=== PATIENT | female | born 1965 | race Caucasian/White ===

== ENCOUNTER → 2019-09-18 14:13 | Outpatient (BNVA) | payer MEDICARE, SELFPAY | PROVIDERS: Family Provider Family Medicine; PCP Family Medicine; Visit Provider Nurse Practitioner | DX: R05 Cough (principal) | CPT/HCPCS: 71046; 87400 ==

== ENCOUNTER 2019-09-30 22:03 | Emergency (ER) | payer MEDICARE, BC, SELFPAY ==
[2019-09-30 22:09] VITALS: BP 175/100; PULSE 98; RESP 18; TEMP 36.7; O2SAT 98; BMI 22.6
--- NOTE | 2019-09-30 22:24 | W.ED.FEMALGU ---
HPI - Female Genitourinary General: Chief complaint: Urogenital-Female Stated complaint: ordonez, n/v, med refill, flank pain Time Seen by Provider: 09/30/19 22:18 History of Present Illness: HPI Narrative: Patient complained about migraine is gone for couple days and then SI joint pain on the right side not really flank pain denies any chest pain just feels stressed denies any shortness of breath heaviness in her chest or pain rating down her arms or neck is any dysuria or blood in her urine Associated symptoms: Reports headache(s) and nausea; Deny abdominal pain Review of Systems Const: Denies: fever(s), chills or body aches Eyes: Denies: change in vision or blurry vision ENMT: Denies: throat pain or nasal congestion Card: Denies: chest pain or dyspnea on exertion Resp: Denies: dyspnea, productive cough or non-productive cough GI: Reports: nausea; Denies: abdominal pain or vomiting Musc: Reports: back pain (Right SI joint); Denies: extremity pain Skin/Breast: Denies: rash Neuro: Reports: headache(s) and other (Complain about photo and phono phobia) Psych: Denies: anxiety or depression Subhash/Lymph: Denies: easy bruising PFSH ED PFSH: Social History (Updated 09/18/19 @ 13:38 by Virginia Cartagena LPN) Smoking and tobacco status: current every day smoker Physical Exam Const: COMMON NORMALS: no acute distress, average body habitus and patient oriented x3 HENMT: COMMON NORMALS: normocephalic HEAD & SCALP: normal to inspection and normocephalic FACE & SINUS: normal facial exam Eye: COMMON NORMALS: conjunctivae normal GENERAL EYE: appearance normal, both eyes and all related structures CONJUNCTIVA: Yes conjunctivae normal Neck/C-Spine: COMMON NORMALS: no JVD Chest: COMMONS NORMALS: normal inspection of the chest Resp: COMMON NORMALS: normal respiratory effort and clear to auscultation bilaterally AUSCULTATION: clear to auscultation bilaterally Cardio: COMMON NORMALS: no JVD, regular rate and regular rhythm RATE: regular rate RHYTHM: regular rhythm GI: COMMON NORMALS: Normal to inspection, nondistended, normoactive bowel sounds present Back/Pelvis: COMMON NORMALS: straight leg raise negative bilaterally (SI joint pain right side) Extremity: COMMON NORMALS: normal to inspection and full ROM Neuro: COMMON NORMALS: patient oriented x3, CN's II-XII intact bilaterally, moves all extremities and no focal motor deficits Course Vital Signs: Vital signs: Vital Signs Temperature 98.1 F 09/30/19 22:09 Pulse Rate 98 09/30/19 22:09 Respiratory Rate 18 09/30/19 22:09 Blood Pressure 175/100 09/30/19 22:09 Pulse Oximetry 98 09/30/19 22:09 Discharge Plan Discharge Prescriptions: No Action No Known Home Medications RF: 0 Coding Level of Care Code ED Junior Business Analyst for Martha Stout
--- NOTE | 2019-09-30 22:45 | PC.NURSE ---
patient states she is having a migraine with right flank pain and nausea. patient states this started today
[2019-09-30] MEDS: ondansetron 2 mg/ML SDV 2 mL 4 MG IVP (22:54)
[2019-09-30] MEDS: diphenhydrAMINE 50 mg/mL SDV 1mL 25 MG IVP (22:54)
[2019-09-30] MEDS: ketorolac 30 mg/mL INJ IVP (22:55)
[2019-09-30] MEDS: sodium chloride 0.9% 1,000 ML 999 ML IV (22:58)
[2019-09-30 22:59] VITALS: BP 158/96; PULSE 80; RESP 14; O2SAT 97
[2019-09-30 23:24] VITALS: BP 160/101; O2SAT 96
[2019-09-30 23:38] VITALS: BP 165/99; PULSE 69; RESP 16; O2SAT 97
[2019-09-30] MEDS: dexamethasone 4 mg/mL INJ 8 MG IVP (23:43)
[2019-10-01 00:24] VITALS: BP 125/86; PULSE 67; RESP 16; O2SAT 98
== END 2019-10-01 00:25 | disposition home or self-care (01) ==
PROVIDERS: Emergency Provider Nurse Practitioner Family; PCP Family Medicine
DX: R51 Headache (principal); R11.2 Nausea with vomiting, unspecified; R10.9 Unspecified abdominal pain; F17.210 Nicotine dependence, cigarettes, uncomplicated
CPT/HCPCS: 12345; 96361; 96374; 96375; 99282; 99283; J1100; J1200; J1885; J2405; J7030

== ENCOUNTER 2019-12-03 18:17 | Outpatient (CLI) | payer BC, SELFPAY ==
--- NOTE | 2019-12-03 18:25 | XRR_ITS ---
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 COMPARISON: CR XR chest 2V* [id number] 09/18/2019 2:26 PM FINDINGS: Lungs: Hyperinflation of the lungs. No consolidation. Pleural space: Unremarkable. No pleural effusion. No pneumothorax. Heart/Mediastinum: Postsurgical changes in the upper abdomen. Postsurgical changes noted in the anterior mediastinum, similar to prior exam, in keeping with provided history. Bones/joints: Unremarkable. XR/XR chest 2V* [id number] IMPRESSION: No consolidation.
== END 2019-12-03 18:18 | disposition home or self-care (01) ==
PROVIDERS: PCP Family Medicine; Visit Provider Nurse Practitioner Family
DX: R50.9 Fever, unspecified (principal)
CPT/HCPCS: 71046

== ENCOUNTER → 2019-12-12 14:51 | Outpatient (BNVA) | payer BC, SELFPAY | PROVIDERS: PCP Family Medicine; Visit Provider Psychiatry & Neurology Psychiatry | DX: F41.1 Generalized anxiety disorder (principal); F33.1 Major depressive disorder, recurrent, moderate; F43.29 Adjustment disorder with other symptoms | CPT/HCPCS: 99204 ==

== ENCOUNTER → 2020-01-24 07:44 | Outpatient (BNVA) | payer BC, SELFPAY | PROVIDERS: PCP Family Medicine; Visit Provider Psychiatry & Neurology Psychiatry | DX: F43.29 Adjustment disorder with other symptoms (principal); F33.1 Major depressive disorder, recurrent, moderate; F41.1 Generalized anxiety disorder | CPT/HCPCS: 99213 ==

== ENCOUNTER 2020-04-06 23:30 | Emergency (ER) | payer MEDICARE, SELFPAY ==
[2020-04-06 23:36] VITALS: BP 121/82; PULSE 107; RESP 18; TEMP 35.9; O2SAT 96; BMI 20.1
--- NOTE | 2020-04-07 00:09 | XR_ITS ---
WS: [id number] XR KUB portable [id number] REASON FOR EXAM: francis drain FINDINGS: Multiple surgical clips in the upper right and left abdomen. Moderate distention of colon in the midline. No free air or retroperitoneal air. Drainage catheter seen overlying the right iliac wing. No previous imaging with drainage catheter in place. XR/XR KUB portable [id number] IMPRESSION: Drainage catheter in the right abdomen as above.
[2020-04-07 02:15] VITALS: RESP 17
[2020-04-07] MEDS: fentaNYL 50 mcg/mL INJ 2mL 100 MCG IVP (02:15)
[2020-04-07] MEDS: ondansetron 2 mg/ML SDV 2 mL 4 MG IVP (02:15)
--- NOTE | 2020-04-07 02:35 | W.ED.GENADLT ---
HPI - General Adult General: Chief complaint: General Medical Stated complaint: francis tube won't drain Time Seen by Provider: 04/06/20 23:42 History of Present Illness: HPI narrative: 54-year-old female with a history of diverticulitis surgery and FRANCIS tube placement a couple of weeks ago in [facility] [place]. She notes that the FRANCIS tube has quit draining for the past 36 hours or so. She notes an increase in pain following that. She has flushed it, but is unable to get much return at all. She has not had a fever. She is not been vomiting. She is asking for the drain to be pulled. Onset (ago): hour(s) (36) Location: abdomen Radiation: non-radiation Severity: moderate Pain Consistency: constant Relieving factors: none Exacerbating factors: none Associated symptoms: Reports nausea; Deny chest pain, confusion, cough, dyspnea, fevers/chills or vomiting Review of Systems Const: Denies: fever(s) or chills Card: Denies: chest pain Resp: Denies: dyspnea GI: Reports: nausea; Denies: vomiting Neuro: Denies: confusion PFSH ED PFSH: Social History (Updated 09/18/19 @ 13:38 by Virginia Cartagena LPN) Smoking and tobacco status: current every day smoker Current gender identity: Female Physical Exam Const: GENERAL APPEARANCE: well developed ORIENTATION/CONSCIOUSNESS: Yes oriented to person, Yes oriented to place and Yes oriented to time HENMT: COMMON NORMALS: normocephalic, external ears normal and Normal external nose present HEAD & SCALP: normocephalic FACE & SINUS: normal facial exam NOSE: Normal external nose present and No nasal discharge present EXTERNAL EAR: Yes external ears normal Eye: COMMON NORMALS: Equal, round and reactive pupils present, EOMs intact bilaterally and conjunctivae normal EYELID: eyelids normal CONJUNCTIVA: Yes conjunctivae normal PUPIL: Yes Equal, round and reactive pupils present Neck/C-Spine: GENERAL: No tracheal deviation Chest: COMMONS NORMALS: normal inspection of the chest CHEST: No tenderness Resp: COMMON NORMALS: clear to auscultation bilaterally EFFORT & INSPECTION: No tachypneic, No respiratory distress, No retractions, No uses accessory muscles and No tracheal deviation AUSCULTATION: clear to auscultation bilaterally, no rhonchi, no wheezes and lung sounds not diminished Cardio: COMMON NORMALS: regular rate and regular rhythm RATE: regular rate RHYTHM: regular rhythm HEART SOUNDS: no murmurs PERIPHERAL PULSES: radial pulses present GI: INSPECTION: No abdominal distension AUSCULTATION: No Hyperactive bowel sounds present and No Hypoactive bowel sounds present PALPATION: Yes Tenderness to palpation present (GI) Details: RLQ (around drain exit. NO swelling, drainage, redness), No Guarding due to palpation present (GI) and No Rigid due to palpation PERCUSSION: no dullness to percussion and no tympanic to percussion Neuro: SENSORIUM/ORIENTATION: Yes oriented to person, Yes oriented to place and Yes oriented to time Psych: COMMON NORMALS: mental status grossly normal Skin: COMMON NORMALS: no rashes or lesions noted GENERAL SKIN EXAM: no rashes or lesions noted Course Consultations: Consultation #Lukasz: ozzy Time: 02:01 Vital Signs: Vital signs: Vital Signs Temperature 96.7 F L 04/06/20 23:36 Pulse Rate 107 H 04/06/20 23:36 Respiratory Rate 17 04/07/20 02:15 Blood Pressure 121/82 04/06/20 23:36 Pulse Oximetry 96 04/06/20 23:36 MDM - General Adult MDM Narrative: Medical decision making narrative: 54-year-old female with a decreasing FRANCIS tube drainage, with increasing pain. She sounds no sign of toxicity. After KUB was reviewed, attempted pulling the drain was made. Suture was cut using normal suture removal scissors. Back pressure was placed, but with a significant increase in pain, and no bulging of the drain. One of our nurses tried as well, with the same result. We spoke with the surgeon supervisor electronic testing, who recommended trying to flush the drain with sterile saline, and then pull, which was attempted without success. Surgery states they will see the patient later today as an outpatient for further evaluation and management. Discharge Plan Discharge Patient Disposition: Home Clinical Impression: Abdominal pain Qualifiers: Abdominal location: right lower quadrant Qualified Code(s): R10.31 - Right lower quadrant pain Condition: Stable Prescriptions: [place] 5-325 mg tablet 1 tab PO Q6H Qty: 7 RF: 0 ondansetron 4 mg film 4 mg PO DAILY PRN (Reason: nausea and vomiting) Qty: 10 RF: 0 No Action diphenhydramine HCl [Benadryl] 25 mg capsule 75 mg PO .QHS PRNRF: 0 melatonin 10 mg capsule 30 mg PO .QHS RF: 0 Excedrin Tension Headache 500-65 mg tablet 2 tab PO DAILY PRNRF: 0 ibuprofen 200 mg tablet 800 mg PO Q12H PRN (Reason: fever or pain) RF: 0 naproxen sodium 220 mg tablet 440 mg PO DAILY PRNRF: 0 omeprazole 20 mg capsule,delayed release(DR/EC) 40 mg PO BID RF: 0 papaya enzymes PO DAILY PRNRF: 0 promethazine 25 mg tablet 25 mg PO TID PRN (Reason: nausea and vomiting) Qty: 15 RF: 0 albuterol sulfate [ProAir HFA] 90 mcg/actuation HFA aerosol inhaler 2 puff INHALATION Q6H PRNRF: 0 sertraline [Zoloft] 100 mg tablet 100 mg PO DAILY Qty: 30 RF: 2 trazodone 100 mg tablet 200 mg PO .HS Qty: 60 RF: 2 Discharge Orders: Discharge ED (Routine); Ordered 04/07/20 Ordered By: Herberth Alamo Referrals: Inder Hazel MD [Physician] - (follow up later today in clinic. ) Virginia Proctor DO [Primary Care Provider] - Discharge Activity: Limit activity as instructed Patient Instructions: Abdominal Pain (ED) Activity Restrictions/Additional Instructions: Call the surgery clinic just after 8 AM this morning. Let them know you were seen here, and that we spoke to Dr. Hazel. He would like to see you today regarding difficulty with your FRANCIS drain. Coding Level of Care Code ED Perianesthesia Manager for [employer] Fwd Exam Comprehensive
--- NOTE | 2020-04-07 02:35 | PC.NURSE ---
attempted to remove LB drain twice now; once with Dr. Alamo attempting as well. there is great resistance to removing the drain from the inside; the entry point of the drain is clean, with reddened edges, but overall looks good; single suture was removed without complications. Dr. Alamo spoke with oncall surgeon for guidance, recommendation of flushing the tube in an attempt to dislodge; attempt was made, again with no success. Dr. Alamo made aware.
[2020-04-07 02:45] VITALS: BP 107/70; PULSE 73; RESP 17; O2SAT 100
[2020-04-07] MEDS: HYDROcodone-acetaminophen 5-325 mg Tablet 2 TAB PO (02:58)
[2020-04-07 03:00] VITALS: BP 107/70; PULSE 70; RESP 16; O2SAT 97
== END 2020-04-07 03:01 | disposition home or self-care (01) ==
PROVIDERS: Emergency Provider Emergency Medicine; PCP Family Medicine
DX: R10.31 Right lower quadrant pain (principal); F17.210 Nicotine dependence, cigarettes, uncomplicated
CPT/HCPCS: 12345; 74018; 96374; 96375; 99282; 99283; J2405; J3010

== ENCOUNTER → 2020-10-13 09:22 | Outpatient (BNVA) | payer MEDICARE, SELFPAY | PROVIDERS: PCP Family Medicine; Visit Provider Family Medicine | DX: Z13.6 Encounter for screening for cardiovascular disorders (principal); E55.9 Vitamin D deficiency, unspecified; J43.1 Panlobular emphysema; K21.9 Gastro-esophageal reflux disease without esophagitis; Z86.39 Personal history of other endocrine, nutritional and metabolic disease; F17.219 Nicotine dependence, cigarettes, with unspecified nicotine-induced disorders | CPT/HCPCS: 80053; 80061; 82306; 82728; 83540; 83550; 85025 ==

== ENCOUNTER → 2020-10-23 11:56 | Day surgery (SDC) | payer MEDICARE, SELFPAY ==
[2020-10-23] MEDS: ferric carboxy (IVPB) 750 MG in sodium chloride 0.9% (100 ml) 100 ML 345 MG IV (12:23)
[2020-10-23 12:31] VITALS: BP 162/83; PULSE 79; RESP 18; TEMP 36.5; O2SAT 100
== END ==
PROVIDERS: PCP Family Medicine; Visit Provider Family Medicine
DX: D50.8 Other iron deficiency anemias (principal)
CPT/HCPCS: 96365; J1439

== ENCOUNTER → 2020-10-30 11:42 | Day surgery (SDC) | payer MEDICARE, SELFPAY ==
[2020-10-30 12:16] VITALS: BP 121/73; PULSE 68; RESP 18; TEMP 36.4; O2SAT 96
[2020-10-30] MEDS: ferric carboxy (IVPB) 750 MG in sodium chloride 0.9% (100 ml) 100 ML 345 MG IV (12:30)
== END ==
PROVIDERS: PCP Family Medicine; Visit Provider Family Medicine
DX: D50.8 Other iron deficiency anemias (principal)
CPT/HCPCS: 96365; J1439

== ENCOUNTER → 2020-11-10 10:54 | Outpatient (BNVA) | payer MEDICARE, SELFPAY | PROVIDERS: PCP Family Medicine; Visit Provider Family Medicine | DX: D50.9 Iron deficiency anemia, unspecified (principal); R63.4 Abnormal weight loss; K21.9 Gastro-esophageal reflux disease without esophagitis | CPT/HCPCS: 83550; 85025 ==

== ENCOUNTER 2020-11-18 11:50 | Outpatient (CLI) | payer MEDICARE, SELFPAY ==
--- NOTE | 2020-11-18 11:58 | XR_ITS ---
WS: [id number] XR chest 2V* [id number] REASON FOR EXAM: weight loss FINDINGS: There is lucency and multiple air-fluid levels projected within the anterior mediastinum in both the AP and lateral views of the chest. Bowel wall markings are identified in the air collections. This ap pears to be large bowel, less likely small bowel. Thoracic aorta and heart are within normal limits. No active pulmonary parenchymal or pleural disease is noted. The bony thorax is intact. 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 There appears to be a considerable amount of bowel within the anterior mediastinum. This abnormality was present on a previous examination of 12/03/2019 with a less er amount of bowel. Finding was not reported. CT scan of the chest with intravenous contrast would be appropriate further ayaz luation. Oral contrast was not be needed.
== END 2020-11-18 11:51 | disposition home or self-care (01) ==
LOC: RAD 11:55
PROVIDERS: PCP Family Medicine; Visit Provider Family Medicine
DX: R63.4 Abnormal weight loss (principal)
CPT/HCPCS: 71046

== ENCOUNTER 2020-11-26 11:35 | Outpatient (CLI) | payer MEDICARE, SELFPAY ==
--- NOTE | 2020-11-26 12:08 | CT_ITS ---
WS: [id number] CT CHEST, ABDOMEN, AND PELVIS TECHNIQUE: Contrast-enhanced CT of the chest, abdomen, and pelvis with coronal and sagittal reformatt ed images. CLINICAL INFORMATION: abnormal chest x ray COMPARISON: 2 26,018 DLP: 1291.[address] scans at [facility] use at least one of these dose optimization techniques: automat ed exposure control; mA and/or kV adjustment per patient size (includes targeted exams where dose is matched to clinical indication); or iterative reconstruction. CT CHEST: Prior postoperative changes esophagectomy with colonic interposition. Moderate chronic emphysematous changes. No acute pulmonary infiltrates. No consolidation or pleural fluid. Calcified granuloma left lower lobe with surrounding parenchymal fibrosis. Adjacent parenchymal opacities improved compared to 2018. No other suspicious pulmonary parenchymal abnormalities. Subsegmental atelectasis in the lingu la and right middle lobe. No mediastinal or hilar lymphadenopathy. Normal caliber thoracic aorta. Proximal main pulmonary arter ies are normal. No axillary lymphadenopathy. Normal thoracic spine. CT ABDOMEN AND PELVIS: Diffuse fatty infiltration of the liver. Cholecystectomy clips. Normal portal vein and splenic vein. Splenic granulomas. Adrenal glands are normal. Normal renal parenchymal enhanc ement. No hydronephrosis. Malrotation right kidney. Small bilateral renal cysts. Fibroid uterus. No evidence of high-grade small or large bowel obstruction. Mild constipation in the hepatic flexure and proximal transverse colon. Normal caliber abdominal aorta. Pelvic varicosities. Prior gastric bypass. Tubal ligation. Stable Bartholin's cyst measuring 2.[address]/CT chest abd pel w con* IMPRESSION: 1. Esophagectomy with colonic interposition. 2. No suspicious pulmonary parenchymal opacities. 3. No mediastinal or hilar lymphadenopathy. 4. Hepatomegaly with diffuse fatty infiltration. This is new since 2018 5. Prior cholecystectomy and gastric bypass. 6. Fibroid uterus. 7. Mild constipation right hepatic flexure and proximal transverse colon.
[2020-11-26] MEDS: iohexol 300 mg/mL 50 mL Btl PO (12:11)
[2020-11-26] MEDS: iohexol 300 mg/mL 100 mL Btl IV (13:47)
== END 2020-11-26 11:36 | disposition home or self-care (01) ==
PROVIDERS: PCP Family Medicine; Visit Provider Family Medicine
DX: K46.9 Unspecified abdominal hernia without obstruction or gangrene (principal); R16.0 Hepatomegaly, not elsewhere classified; K76.0 Fatty (change of) liver, not elsewhere classified; Z90.49 Acquired absence of other specified parts of digestive tract; D25.9 Leiomyoma of uterus, unspecified; K59.00 Constipation, unspecified
CPT/HCPCS: 71260; 74177; Q9967

== ENCOUNTER → 2020-12-15 08:57 | Outpatient (BNVA) | payer MEDICARE, SELFPAY | PROVIDERS: PCP Family Medicine; Visit Provider Surgery | DX: Z20.822 Contact with and (suspected) exposure to COVID-19 (principal) | CPT/HCPCS: 87635 ==

== ENCOUNTER 2020-12-18 08:39 | Day surgery (SDC) | payer BC, MEDICARE, SELFPAY ==
[2020-12-15 16:00] VITALS: BMI 19.3
--- NOTE | 2020-12-18 10:10 | ANES.PREANE2 ---
Pre-Anesthetic Assessment Pre-Anesthetic Assessment: Height/Weight: Height 1.68 m Weight 54.431 kg Preop Diagnosis: panendoscopy Proposed Procedure: Operation Date: 12/18/20 10:00 Proposed Procedures s EGD [id number] 33226 Z12.11 K21.9(Not Applicable) - Inder Hazel MD p Colonoscopy(Not Applicable) - Inder Hazel MD Was Beta Emily taken within 24 hours: N/A Was Clonidine taken within 24 hours: N/A Social: Social History: Tobacco and No alcohol Exam: Pre-Anes Outpt Exam: alert, oriented x 3 and regular rate & rhythm Airway: Submandibular: WNL Cervical ROM: WNL MP: 2 Dentition: False Pulmonary: Pulmonary: COPD CV/HEM: CV/HEM: Anemia GI: GI: GERD Comments: Esophageal reconstruction Neuropsych: Neuropsych: Anxiety and Depression Comments: Chronic pain Anesthetic Plan: ASA status: 3 Anesthesia: Choice Risk of > 500 ml blood loss (7ml/kg in children): No PFSH Anesthesia PFSH: Medical History Asthma COPD (chronic obstructive pulmonary disease) S/P extracorporeal shock wave therapy kidney stones Surgical History H/O section H/O esophageal hernia repair H/O gastric bypass H/O jejunostomy History of knee surgery left arthroscopic Hx of cholecystectomy Hx of tubal ligation Family History Other Cancer Diabetes Denies family history of Anesthesia complication Bleeding disorder Social History Smoking and tobacco status: current every day smoker cigarettes Packs smoked per day: 0.75 Alcohol intake: current Alcohol intake frequency: holidays/special occasions only Lives independently: Yes Marital status: Single Current occupational status: employed History of recent travel: No Current gender identity: Female Data Anesthesia Cardiac Studies: No Data to Display
[2020-12-18 11:00] VITALS: BP 120/74; PULSE 91; RESP 18; TEMP 36.9; O2SAT 96
[2020-12-18] MEDS: sodium chloride 0.9% 1,000 ML 30 ML IV (11:20)
[2020-12-18 12:11] VITALS: BP 100/64; PULSE 100; RESP 20; TEMP 36.3; O2SAT 96
--- NOTE | 2020-12-18 13:40 | W.PM.OPSFHP ---
Same Day Surgery H&P Indication for Procedure/HPI DATE OF PROCEDURE: December 19, 2020 CHIEF COMPLAINT/INDICATIONFOR SURGICAL PROCEDURE: egd/colon PREOP DIAGNOSIS: panendoscopy PLANNED PROCEDRUE: Operation Date: 12/18/20 10:00 Proposed Procedures s EGD [id number] 61036 Z12.11 K21.9(Not Applicable) - Inder Hazel MD p Colonoscopy(Not Applicable) - Inder Hazel MD Medications/Allergies* Home Medications Medication Instructions Recorded Confirmed Type diphenhydramine HCl 25 mg capsule 75 mg PO .QHS PRN cap 01/08/20 12/18/20 History melatonin 10 mg capsule 30 mg PO .QHS cap 01/08/20 12/18/20 History papaya enzymes 3 ea PO DAILY 01/24/20 12/18/20 History Allergies/Adverse Reactions Allergy/AdvReac Type Severity Reaction Status Date / Time gabapentin Allergy Severe ADR-Chest Verified 12/18/20 11:21 Pain sumatriptan [From Imitrex] Allergy Severe ADR-Chest Verified 12/18/20 11:21 Pain morphine Allergy Intermediate ADR-Headach Verified 12/18/20 11:21 e Pertinent History/Comorbid Conditions* Medical History (Updated 12/05/20 @ 09:55 by Inder Hazel MD) Asthma COPD (chronic obstructive pulmonary disease) S/P extracorporeal shock wave therapy kidney stones Surgical History (Updated 12/18/20 @ 12:11 by Inder Hazel MD) H/O section H/O esophageal hernia repair H/O esophagogastroduodenoscopy (12/18/20) H/O gastric bypass H/O jejunostomy History of knee surgery left arthroscopic Hx of cholecystectomy Hx of tubal ligation (Unknown) Status post colonoscopy (12/18/20) poor prep - incomplete Family History (Updated 04/07/20 @ 09:03 by Chiquita Cuevas LPN) Diabetes Cancer Denies family history of Anesthesia complication Bleeding disorder Social History Smoking and tobacco status: current every day smoker cigarettes Packs smoked per day: 0.75 Alcohol intake: current Alcohol intake frequency: holidays/special occasions only Lives independently: Yes Marital status: Single Current occupational status: employed History of recent travel: No Current gender identity: Female Pertinent Exam Findings alert, oriented x 3 and regular rate & rhythm Recommendations Surgery/Procedure today Coding Level of Care Code Acute Strawhat Inspector And Packer for Chg Girish
--- NOTE | 2020-12-18 16:19 | ANE.PACU2 ---
Inpatient post-anesthesia follow up: Airway intact: Yes Vital signs: Temperature 97.4 F Pulse Rate 100 Respiratory Rate 20 Blood Pressure 100/64 Pulse Oximetry 96 Oxygen Delivery Me thod Nasal Cannula Oxygen Flow Rate 4 Fraction of Inspir ed Oxygen Hydration adequate: Yes Nausea and vomiting: No Pain level: 1 Mental status: Baseline
== END 2020-12-18 12:36 | disposition home or self-care (01) ==
PROVIDERS: PCP Family Medicine; Visit Provider Surgery
PROC: 0DJ08ZZ Inspection of Upper Intestinal Tract, Via Natural or Artificial Opening Endoscopic (ICD-10-PCS; CPT 43235; principal; 2020-12-18 10:00)
PROC: 0DJD8ZZ Inspection of Lower Intestinal Tract, Via Natural or Artificial Opening Endoscopic (ICD-10-PCS; CPT 45378; 2020-12-18 10:00)
DX: Z12.11 Encounter for screening for malignant neoplasm of colon (principal); K21.9 Gastro-esophageal reflux disease without esophagitis; K29.70 Gastritis, unspecified, without bleeding; J44.9 Chronic obstructive pulmonary disease, unspecified; F17.210 Nicotine dependence, cigarettes, uncomplicated
CPT/HCPCS: 43239; 45378; 88305; 96360; G0121; J2704; J7030

== ENCOUNTER 2021-02-06 09:41 | Emergency (ER) | payer BC, MEDICARE, SELFPAY ==
[2021-02-06 09:55] VITALS: BP 165/108; PULSE 98; RESP 18; TEMP 37; O2SAT 92; BMI 19.7
--- NOTE | 2021-02-06 10:11 | XR_ITS ---
WS: [id number] XR chest 1V portable [id number] REASON FOR EXAM: sob FINDINGS: The chest is not significantly changed compared to the previous examination of 11/18/2020. Mediastinal lucencies represent the colon interposition status post esophagectomy. The heart is mildly enlarged. No active pulmonary parenchymal or pleural disease is noted. Mild degenerative changes in the mid and lower thoracic spine. XR/XR chest 1V portable [id number] IMPRESSION: Postsurgical changes mediastinum. No acute chest abnormality.
--- NOTE | 2021-02-06 10:11 | CT_ITS ---
WS: [id number] CT ABDOMEN AND PELVIS WITH CONTRAST HISTORY: abdominal pain TECHNIQUE: Imaging performed of the abdomen and pelvis with IV contrast. Single phase imaging of the abdomen. Coronal and sagittal reformats are submitted. All CT scans at [facility] use at [address] one of these dose optimization techniques: automated exposure control; mA and/or kV adjustment per patient size (includes targeted exams where dose is matched to clinical indication); or iterative re construction. IV CONTRAST: Omnipaque 300; 75 mL IV. Oral contrast: No DLP: 668.56 mGy.cm COMPARISON: 11/26/2020, 06/20/2017 and 06/04/2015 Lower thorax: Chronic emphysematous changes at the lung bases. Very mild tree-in-bud opacifications a t the LEFT lung base. Heart is moderately enlarged. Surgical sutures are present at the distal esopha jessy. As per history prior gastric bypass. The colon extends into the inferior thorax over the ventral heart. This has been present on multiple prior examinations. Liver/biliary system: Normal size liver. Low-attenuation 10 mm nodule in the lateral segment LEFT lob e was probably present in 2012 but not as well-visualized. No bile duct dilatation. Gallbladder: Status post cholecystectomy. Pancreas: Atrophied and poorly visualized pancreas. Spleen: Normal size spleen with granulomata. Adrenal glands: Normal. Right kidney: Normal. Left kidney: Extrarenal pelvis. No obstruction. Aorta: Mild atherosclerosis with no aneurysm. Lymphadenopathy: Lymph nodes are not identified. Adenopathy or mesenteric or omental masses would be easily overlooked without fat the loops of bowel. Free fluid: None. GI tract: Severe diffuse constipation. There is a row of surgical sutures in the colon anteriorly in the pelvis. Probably sigmoid anastomotic sutures. With overlapping loops of colon it is difficult to trace the colon to be sure the exact place. Abdominal wall: Patient has a known large ventral supraumbilical abdominal wall defect containing col on. Colon extends into the thorax which has been previously described. No obstruction. No new hernia. Pelvis: Well-distended urinary bladder. Uterus is noted in the midline. No pelvic masses. Bones: Subtle area of osteonecrosis at the RIGHT femoral head. CT/CT abdomen pelvis w con* [id number] IMPRESSION: 1. Severe diffuse constipation and obstipation. 2. Status post gastric bypass. Additional colonic anastomosis is identified wi th no obstruction. 3. Prior cholecystectomy. 4. No ascites. 5. Very subtle tree-in-bud airspace disease at the LEFT lung base. Consider en dobronchial pneumonia.
--- NOTE | 2021-02-06 10:22 | ED_ITS ---
HPI - Abdominal Pain General: Chief Complaint: Abdominal Pain Stated Complaint: RESPIRATORY ISSUES, ABD PAIN Time Seen by Provider: 02/06/21 10:06 History of Present Illness: HPI narrative: Patient presents here with complaints of abdominal discomfort chronic but recently flared up. States that she has diarrhea and constipation on intermittent basis along with gastroparesis. Has had a gastric sleeve in the past. Also states she is short of breath here recently -coughing a lot- continues to smoke. Patient has known COPD. He says she also has body aches. Denies any close Covid contact. MD elicited complaint: abdominal pain and other (Cough and shortness of breath) Onset (ago): day(s) Pain Consistency: constant Location: Diffuse Associated Symptoms: Reports chills, constipation, diarrhea and nausea; Denies fever(s) and vomiting Review of Systems Const: Reports: chills; Denies: fever(s) or body aches Eyes: Denies: change in vision or blurry vision ENMT: Denies: throat pain or nasal congestion Card: Denies: chest pain or dyspnea on exertion Resp: Reports: dyspnea and non-productive cough; Denies: productive cough GI: Reports: abdominal pain, nausea, diarrhea and constipation; Denies: vomiting Musc: Reports: extremity pain (Myalgias) Skin/Breast: Denies: rash Neuro: Denies: headache(s) Psych: Denies: anxiety or depression Subhash/Lymph: Denies: easy bruising PFS ED PFSH: Medical History Asthma COPD (chronic obstructive pulmonary disease) S/P extracorporeal shock wave therapy kidney stones Surgical History H/O section H/O esophageal hernia repair H/O esophagogastroduodenoscopy (12/18/20) H/O gastric bypass H/O jejunostomy History of knee surgery left arthroscopic Hx of cholecystectomy Hx of tubal ligation (Unknown) Status post colonoscopy (12/18/20) poor prep - incomplete Family History Other Cancer Diabetes Denies family history of Anesthesia complication Bleeding disorder Social History Smoking and tobacco status: current every day smoker cigarettes Packs smoked per day: 0.75 Alcohol intake: current Alcohol intake frequency: holidays/special occasions only Lives independently: Yes Marital status: Single Current occupational status: employed History of recent travel: No Current gender identity: Female Physical Exam Const: COMMON NORMALS: no acute distress, average body habitus and patient oriented x3 HENMT: COMMON NORMALS: normocephalic HEAD & SCALP: normal to inspection and normocephalic FACE & SINUS: normal facial exam Eye: COMMON NORMALS: conjunctivae normal GENERAL EYE: appearance normal, both eyes and all related structures CONJUNCTIVA: Yes conjunctivae normal Neck/C-Spine: COMMON NORMALS: no JVD Chest: COMMONS NORMALS: normal inspection of the chest Resp: COMMON NORMALS: normal respiratory effort AUSCULTATION: diminished lung sounds diffuse Cardio: COMMON NORMALS: no JVD, regular rate and regular rhythm RATE: regular rate RHYTHM: regular rhythm GI: AUSCULTATION: Yes Hypoactive bowel sounds present PALPATION: Yes Tenderness to palpation present (GI) Details: LUQ Extremity: COMMON NORMALS: normal to inspection and full ROM Neuro: COMMON NORMALS: patient oriented x3 Course Vital Signs: Vital signs: Vital Signs Temperature 98.6 F 02/06/21 09:55 Pulse Rate 98 02/06/21 09:55 Respiratory Rate 18 02/06/21 09:55 Blood Pressure 165/108 02/06/21 09:55 Pulse Oximetry 92 02/06/21 09:55 MDM - Abdominal Pain MDM Narrative: Medical decision making narrative: Patient with constipation and obstipation. Patient has no obstruction. Patient does have mild COPD. Patient received a liter of fluid while here. Labs appear normal. Patient was instructed on high-fiber diet drink plenty of fluids follow-up with your primary care provider and discuss her bowel habits. Lab Data: Labs: Lab Results 02/06/21 02/06/21 02/06/21 10:45 10:45 10:45 WBC 10.6 10^3/uL H 10 ^3/uL (4.0-10.0) RBC 3.87 10^6/uL L 10 ^6/uL (4.1-5.3) Hgb 12.6 g/dL g/dL (11.5-15.3) Hct 40.2 % % (37.0-47.0) MCV 103.9 fl H fl (81-99) MCH 32.6 pg pg (28.0-34.0) MCHC 31.3 g/dL g/dL (30.0-36.0) RDW 13.6 % % (12.1-15.1) Plt Count 300 10^3/cmm 10^3 /cmm (130-400) MPV 8.9 fL fL (7.4-10.4) Neut % (Auto) 81.8 % % Lymph % (Auto) 10.6 % % [place] % (Auto) 6.1 % % Eos % (Auto) 1.0 % % Baso % (Auto) 0.3 % % Neut # (Auto) 8.65 10^3/uL H 10 ^3/uL (1.8-7.7) Lymph # (Auto) 1.1 10^3/uL 10^3/ uL (0.8-4.8) [place] # (Auto) 0.6 10^3/uL 10^3/ uL (0.2-0.9) Eos # (Auto) 0.1 10^3/uL 10^3/ uL (0.0-0.8) Baso # (Auto) 0.0 10^3/uL 10^3/ uL (0.0-0.1) Nucleated RBC % (a uto) 0 % % Nucleated RBCs # 0.0 /100WBC /100W BC PT 12.50 SECONDS SEC ONDS (12.1-14.9) INR 0.90 (0.8-1.2) D-Dimer <= 0.27 ug/mIFEU ug/mIFEU (0-0.59) Sodium 139 mmol/L mmol/L (136-145) Potassium 3.8 mmol/L mmol/L (3.5-5.1) Chloride 105 mmol/L mmol/L (98-107) Carbon Dioxide 25 mmol/L mmol/L (22-29) Anion Gap 12.8 (5-19) BUN 10 mg/dL mg/dL (6-20) Creatinine 0.5 mg/dL mg/dL (0.5-0.9) GFR Calculation 128.6 mL/min mL/m in (90-130) Glucose 76 mg/dL mg/dL (65-115) Calculated Osmolal ity 286 mOsm/kg mOsm/ kg (285-295) Calcium 9.0 mg/dL mg/dL (8.5-10.5) Total Bilirubin 0.2 mg/dL mg/dL (0.15-1.2) AST 12 U/L U/L (0-32) ALT 8 U/L U/L (0-33) Alkaline Phosphata se 66 IU/L IU/L (35-105) Troponin T Gen 5 n g/L NT-Pro-B Natriuret Pep 158 pg/mL H pg/mL (0-125) Total Protein 6.5 g/dL L g/dL (6.6-8.7) Albumin 3.9 g/dL g/dL (3.5-5.2) Globulin 2.6 g/dL g/dL (1.3-4.6) Lipase 31 U/L U/L (13-60) Urine Color Urine Appearance Urine pH Ur Specific Gravit y Urine Protein Urine Glucose (UA) Urine Ketones Urine Blood Urine Nitrate Urine Bilirubin Urine Urobilinogen Ur Leukocyte Taina ase Urine RBC Urine WBC Ur Squamous Epith Cells Amorphous Sediment Urine Bacteria Urine Mucus 02/06/21 02/06/21 10:45 11:14 WBC RBC Hgb Hct MCV MCH MCHC RDW Plt Count MPV Neut % (Auto) Lymph % (Auto) [place] % (Auto) Eos % (Auto) Baso % (Auto) Neut # (Auto) Lymph # (Auto) [place] # (Auto) Eos # (Auto) Baso # (Auto) Nucleated RBC % (a uto) Nucleated RBCs # PT INR D-Dimer Sodium Potassium Chloride Carbon Dioxide Anion Gap BUN Creatinine GFR Calculation Glucose Calculated Osmolal ity Calcium Total Bilirubin AST ALT Alkaline Phosphata se Troponin T Gen 5 n g/L 10 ng/L ng/L (0-10) NT-Pro-B Natriuret Pep Total Protein Albumin Globulin Lipase Urine Color Yellow (Yellow) Urine Appearance Sl hazy (CLEAR) Urine pH 6.5 (5-7) Ur Specific Gravit y 1.015 (1.005-1.030) Urine Protein Neg (Negative) Urine Glucose (UA) Norm (Normal) Urine Ketones Negative (Negative) Urine Blood Neg (Negative) Urine Nitrate Negative (Negative) Urine Bilirubin Neg (Negative) Urine Urobilinogen Norm mg/dL mg/dL (Negative) Ur Leukocyte Taina ase 1+ H (Negative) Urine RBC Rare /hpf /hpf (0-2) Urine WBC 0-4 /hpf H /hpf (0-5) Ur Squamous Epith Cells 15-25 /hpf H /hpf (0-5) Amorphous Sediment Not Reportable Urine Bacteria 1+ /hpf H /hpf (NONE) Urine Mucus Trace /hpf /hpf Discharge Plan Discharge Patient Disposition: Home Clinical Impression: Constipation Qualifiers: Constipation type: slow transit constipation Qualified Code(s): K59.01 - Slow transit constipation Condition: Stable Prescriptions: New lactulose 20 gram/30 mL solution 20 g PO DAILY PRN (Reason: constipation) Qty: 1500 RF: 0 No Action diphenhydramine HCl [Benadryl] 25 mg capsule 75 mg PO .QHS PRN (Reason: Sleep) RF: 0 melatonin 10 mg capsule 30 mg PO .QHS RF: 0 papaya enzymes 3 ea PO DAILY PRNRF: 0 promethazine 25 mg tablet 25 mg PO TID PRN (Reason: nausea and vomiting) Qty: 20 RF: 0 budesonide-formoterol [Symbicort] 160-4.5 mcg/actuation HFA aerosol inhaler 2 puff inhalation BID Qty: 10.2 RF: 3 valerian root 250 mg capsule 250 mg PO .bedtime RF: 0 buspirone 5 mg tablet 5 mg PO TID PRN (Reason: anxiety) Qty: 90 RF: 0 sertraline [Zoloft] 50 mg tablet 50 mg PO DAILY Qty: 30 RF: 0 albuterol sulfate [ProAir HFA] 90 mcg/actuation HFA aerosol inhaler 2 puff INHALATION Q6H PRN (Reason: shortness of breath or wheezing) Qty: 8.5 RF: 2 Dialyvite Vitamin D3 Max 1,250 mcg (50,000 unit) tablet 50,000 unit PO .once a week 30 Days Qty: 4 RF: 3 tramadol 50 mg tablet 50 mg PO DAILY PRN (Reason: pain) Qty: 30 RF: 0 pantoprazole [Protonix] 40 mg tablet,delayed release (DR/EC) 40 mg PO BID Qty: 180 RF: 1 trazodone 100 mg tablet 200 mg PO .HS Qty: 60 RF: 2 Carafate 1 gram tablet 1 g PO Q6H 90 Days Qty: 360 RF: 1 Discharge Orders: Discharge ED (Routine); Ordered 02/06/21 Ordered By: Dylan Bell Referrals: Virginia Proctor DO [Primary Care Provider] - Discharge Diet: As Directed Discharge Activity: Resume usual activity Patient Instructions: Constipation (ED), Obstipation (ED) Activity Restrictions/Additional Instructions: take med as directed , eat a high fiber diet, follow up with primary care provider Coding Level of Care Code ED Hydro Excavation Operator for Chg Fwd Exam Comprehensive
[2021-02-06] MEDS: ketorolac 30 mg/mL INJ IVP (10:41)
[2021-02-06] MEDS: sodium chloride 0.9% 1,000 ML 999 ML IV (10:41)
[2021-02-06] MEDS: ondansetron 2 mg/ML SDV 2 mL 8 MG IVP (10:41)
[2021-02-06] MEDS: iohexol 300 mg/mL 100 mL Btl IV (10:58)
[2021-02-06 10:59] LABS: Basophils % 0.3 %; Eosinophils # 0.1 10^3/uL (0.0-0.8); Hematocrit 40.2 % (37.0-47.0); Hemoglobin 12.6 g/dL (11.5-15.3); Lymphocytes # 1.1 10^3/uL (0.8-4.8); Lymphocytes % 10.6 %; Mean Corpuscular HGB Conc 31.3 g/dL (30.0-36.0); Mean Corpuscular Hemoglobin 32.6 pg (28.0-34.0); Mean Corpuscular Volume 103.9 fl (81-99); Mean Platelet Volume 8.9 fL (7.4-10.4); Monocytes # 0.6 10^3/uL (0.2-0.9); Monocytes % 6.1 %; Neutrophils # 8.65 10^3/uL (1.8-7.7); Neutrophils % 81.8 %; Nucleated Red Blood Cells % 0 %; Platelet Count 300 10^3/cmm (130-400); Red Blood Count 3.87 10^6/uL (4.1-5.3); Red Cell Distribution Width 13.6 % (12.1-15.1); White Blood Count 10.6 10^3/uL (4.0-10.0)
[2021-02-06 11:14] LABS: D Dimer <= 0.27 ug/mIFEU (0-0.59)
[2021-02-06 11:25] LABS: Troponin T (5th) Once 10 ng/L (0-10)
[2021-02-06] MEDS: lactulose oral liq 20 gm/30 mL UDC 30 GM PO (11:32)
[2021-02-06 11:34] LABS: Alanine Aminotransferase 8 U/L (0-33); Albumin Level 3.9 g/dL (3.5-5.2); Alkaline Phosphatase 66 IU/L (35-105); Aspartate Amino Transferase 12 U/L (0-32); Blood Urea Nitrogen 10 mg/dL (6-20); Carbon Dioxide 25 mmol/L (22-29); Globulin 2.6 g/dL (1.3-4.6); Glomerular Filtration Rate 128.6 mL/min (90-130); Glucose 76 mg/dL (65-115); Lipase 31 U/L (13-60); NT Pro B Type Natriuretic Pept 158 pg/mL (0-125); Total Bilirubin 0.2 mg/dL (0.15-1.2); Total Protein 6.5 g/dL (6.6-8.7)
[2021-02-06 11:36] LABS: Add Urine Microscopic? YES; Bilirubin Urine Neg (Negative); Blood Urine Neg (Negative); Glucose Urine UA Norm (Normal); Ketones Urine Negative (Negative); Leukocyte Esterase Urine 1+ (Negative); Nitrate Urine Negative (Negative); Protein Urine Neg (Negative); Specific Gravity, Urine 1.015 (1.005-1.030); Urine Appearance SL Hazy (CLEAR); Urine Color Yellow (Yellow); Urobilinogen Urine Norm (Negative); pH Urine 6.5 (5-7)
[2021-02-06 11:42] LABS: Add Urine Culture? No; Bacteria Urine 1+ /hpf; Mucus Urine TRACE /hpf; RBC Urine RARE /hpf (0-2); Squamous Epithelial Cell Urine 15-25 /hpf (0-5); WBC Urine 0-4 /hpf (0-5)
[2021-02-06 11:52] LABS: Anion Gap 12.8 (5-19); Chloride 105 mmol/L (98-107); Osmolality Calculated 286 mOsm/kg (285-295); Potassium 3.8 mmol/L (3.5-5.1); Sodium 139 mmol/L (136-145)
[2021-02-06 11:55] LABS: SARS Covid-2 Antigen Negative (Negative)
[2021-02-06] MEDS: metoclopramide 5 mg/mL SDV 2 mL 10 MG IVP (12:47)
== END 2021-02-06 13:17 | disposition home or self-care (01) ==
PROVIDERS: Emergency Provider Nurse Practitioner Family; PCP Family Medicine
DX: K59.01 Slow transit constipation (principal); J44.9 Chronic obstructive pulmonary disease, unspecified; F17.210 Nicotine dependence, cigarettes, uncomplicated; Z20.822 Contact with and (suspected) exposure to COVID-19
CPT/HCPCS: 36415; 71045; 74177; 80053; 81001; 83690; 83880; 84484; 85025; 85378; 85610; 87426; 96361; 96374; 96375; 99283; J1885; J2405; J2765; J7030; Q9967

== ENCOUNTER → 2021-04-14 17:34 | Outpatient (BNVA) | payer BC, MEDICARE, SELFPAY | PROVIDERS: PCP Family Medicine; Visit Provider Nurse Practitioner | DX: M79.89 Other specified soft tissue disorders (principal); M77.31 Calcaneal spur, right foot | CPT/HCPCS: 73610 ==

== ENCOUNTER 2021-05-15 15:05 | Emergency (ER) | payer BC, MEDICARE, SELFPAY ==
[2021-05-15 16:21] VITALS: BP 153/92; PULSE 73; RESP 14; TEMP 36.8; O2SAT 98; BMI 19.3
--- NOTE | 2021-05-15 16:48 | XRR_ITS ---
PROCEDURE INFORMATION: Exam: XR Right Ribs with PA Chest Exam date and time: 05/15/2021 4:48 PM Age: 55 years old Clinical indication: Other: Upper RT rib pain; Additional info: Fall TECHNIQUE: Imaging protocol: XR Right ribs with PA chest. Views: 3 views COMPARISON: 1. CR XR chest 1V portable [id number] 02/06/2021 10:[address] chest abd pel w con* 11/26/2020 1:44 PM FINDINGS: Lungs: Unremarkable. No consolidation. Pleural spaces: Unremarkable. No pleural effusion. No pneumothorax. Heart/Mediastinum: Postsurgical changes, consistent with partial esophageal resection with colonic interposition. Multiple air-fluid levels within the mediastinum are most likely located within the interposed colon. Mild cardiomegaly. Hiatal hernia. Bones/joints: Old right 8th and 9th rib fractures. No acute fracture identified. Intraperitoneal space: Multiple surgical clips in the upper abdomen. XR/XR ribs RT mn 3V w CXR1V [id number] IMPRESSION: 1. No acute finding.
--- NOTE | 2021-05-15 17:37 | W.ED.FALL ---
HPI - Fall General: Chief Complaint: Fall Stated Complaint: fall Time Seen by Provider: 05/15/21 17:37 History of Present Illness: HPI Narrative: 55-year-old female comes in today for complaints of right anterior chest wall tenderness after slipping and falling on an icy patch on her porch this morning. Patient landed on her right side and has concerned that she may have fractured a rib. Patient has a history of COPD, resection of the esophagus, chronic pain syndrome, and anxiety disorder. Review of Systems Musc: Reports: other (Right anterior chest wall injury) PFSH ED PFSH: Medical History Asthma COPD (chronic obstructive pulmonary disease) S/P extracorporeal shock wave therapy kidney stones Surgical History H/O section H/O esophageal hernia repair H/O esophagogastroduodenoscopy (12/18/20) H/O gastric bypass H/O jejunostomy History of knee surgery left arthroscopic Hx of cholecystectomy Hx of tubal ligation (Unknown) Status post colonoscopy (12/18/20) poor prep - incomplete Family History Other Cancer Diabetes Denies family history of Anesthesia complication Bleeding disorder Social History Alcohol intake: current Alcohol intake frequency: holidays/special occasions only Lives independently: Yes Marital status: Single Current occupational status: employed History of recent travel: No Current gender identity: Female Physical Exam Const: COMMON NORMALS: patient oriented x3 and alert HENMT: COMMON NORMALS: atraumatic HEAD & SCALP: atraumatic Eye: COMMON NORMALS: Equal, round and reactive pupils present and EOMs intact bilaterally PUPIL: Yes Equal, round and reactive pupils present Neck/C-Spine: COMMON NORMALS: full ROM Chest: CHEST: No crepitus, Yes tenderness rib (Right anterior second third and fourth rib area), Yes Ecchymosis present (Right anterior chest wall bruising) and Yes Surgical scars present (Chest) (Midline surgical scar) BREAST/AXILLA PALPATION: Yes normal palpation of the axillae Resp: COMMON NORMALS: normal respiratory effort EFFORT & INSPECTION: Yes able to speak in complete sentences AUSCULTATION: rhonchi Cardio: COMMON NORMALS: regular rate and regular rhythm RATE: regular rate RHYTHM: regular rhythm GI: COMMON NORMALS: Soft to palpation INSPECTION: Yes normal to inspection AUSCULTATION: Yes normoactive bowel sounds PALPATION: Yes Soft to palpation and No Tenderness to palpation present (GI) Extremity: COMMON NORMALS: normal to inspection Neuro: COMMON NORMALS: patient oriented x3 SENSORIUM/ORIENTATION: Yes alert Psych: ATTITUDE: Yes calm Skin: TRAUMA: no lacerations or abrasions Course Vital Signs: Vital signs: Vital Signs Temperature 98.2 F 05/15/21 16:21 Pulse Rate 73 05/15/21 16:21 Respiratory Rate 14 05/15/21 16:21 Blood Pressure 153/92 05/15/21 16:21 Pulse Oximetry 98 05/15/21 16:21 MDM - Fall MDM Narrative: Medical decision making narrative: Patient comes in today for complaints of injury to the right anterior chest wall. Patient slipped and fell this morning on a patch of ice on her porch. On exam patient has some tenderness in the right anterior chest wall with some mild swelling and bruising. Differential diagnosis includes but not limited to rib fracture, contusion, pneumothorax. Chest x-ray was completed no signs of fracture was noted by radiologist. Lungs were clear on x-ray there was some surgical changes due to a esophageal resection. We will treat patient for chest wall contusion patient will be given a short course of hydrocodone 5?acetaminophen 325 #14. This is to help with patient's increased significant chest wall tenderness. Patient was also recommended use acetaminophen and ibuprofen for further pain control. I did note that patient uses tramadol and has a prescription available for it, I have recommended patient not use tramadol while using hydrocodone for her pain. Patient reported understanding and agreed to plan. Discharge Plan Discharge Patient Disposition: Home Clinical Impression: Contusion of front wall of thorax Qualifiers: Encounter type: initial encounter Thoracic wall location detail: right Qualified Code(s): S20.211A - Contusion of right front wall of thorax, initial encounter Condition: Stable Prescriptions: New hydrocodone-acetaminophen 5-325 mg tablet 1 tab PO Q6H PRN (Reason: pain (scale score 7-10)) Qty: 14 RF: 0 No Action diphenhydramine HCl [Benadryl] 25 mg capsule 75 mg PO .QHS PRN (Reason: Sleep) RF: 0 melatonin 10 mg capsule 30 mg PO .QHS RF: 0 papaya enzymes 3 ea PO DAILY PRNRF: 0 promethazine 25 mg tablet 25 mg PO TID PRN (Reason: nausea and vomiting) Qty: 20 RF: 0 budesonide-formoterol [Symbicort] 160-4.5 mcg/actuation HFA aerosol inhaler 2 puff inhalation BID Qty: 10.2 RF: 3 valerian root 250 mg capsule 250 mg PO .bedtime RF: 0 buspirone 5 mg tablet 5 mg PO TID PRN (Reason: anxiety) Qty: 90 RF: 0 sertraline 100 mg tablet 100 mg PO DAILY Qty: 30 RF: 2 albuterol sulfate [ProAir HFA] 90 mcg/actuation HFA aerosol inhaler 2 puff INHALATION Q6H PRN (Reason: shortness of breath or wheezing) Qty: 8.5 RF: 2 Dialyvite Vitamin D3 Max 1,250 mcg (50,000 unit) tablet 50,000 unit PO .once a week 30 Days Qty: 4 RF: 3 pantoprazole [Protonix] 40 mg tablet,delayed release (DR/EC) 40 mg PO BID Qty: 180 RF: 1 trazodone 100 mg tablet 200 mg PO .HS Qty: 60 RF: 2 tramadol 50 mg tablet 50 mg PO DAILY PRN (Reason: pain) Qty: 30 RF: 0 Carafate 1 gram tablet 1 g PO Q6H 90 Days Qty: 360 RF: 1 Discharge Orders: Discharge ED (Routine); Ordered 05/15/21 Ordered By: Dany Portillo Referrals: Virginia Proctor DO [Primary Care Provider] - Discharge Diet: Usual diet Discharge Activity: Increase activity as tolerated Patient Instructions: Contusion in Adults (ED), Opioid Safety Activity Restrictions/Additional Instructions: Ice pack to the area of bruising. Use acetaminophen or ibuprofen for further pain control. Use hydrocodone for more severe pain. Follow-up with primary care for further instructions. Return to the ER for high fever greater than 100.4, increased difficulty breathing, or new concerns. Coding Level of Care Code ED Christmas Tree Grader for Martha Stout
[2021-05-15] MEDS: HYDROcodone-acetaminophen 7.5-325 mg Tablet 2 TAB PO (18:00)
[2021-05-15 18:03] VITALS: BP 126/78; PULSE 86; RESP 18; TEMP 36.3; O2SAT 94
--- NOTE | 2021-05-15 18:06 | PC.NURSE ---
REVIEWED DISCHARGE WITH PATIENT, PATIENT IS UPSET THAT SHE ISNT GETTING HER PAIN MED FILLED THIS NIGHT, PATIENT CALLED PHARMACY TO CONFIRM THEY WERE CLOSING, PATIENT KEPT ONE OF THE TWO TABS FOR LATER, PATIENT VERBALIZED UNDERSTANDING OF INSTRUCTIONS, PRESCRIPTION AND FOLLOW, STATES THE OTHER MEDS WONT WORK, PATIENT ABLE TO AMBULATE FROM THE ED WITH BELONGINGS
== END 2021-05-15 18:09 | disposition home or self-care (01) ==
PROVIDERS: Emergency Provider Nurse Practitioner Family; PCP Family Medicine
DX: S20.211A Contusion of right front wall of thorax, initial encounter (principal); W00.0XXA Fall on same level due to ice and snow, initial encounter; G89.4 Chronic pain syndrome; J44.9 Chronic obstructive pulmonary disease, unspecified; Z90.49 Acquired absence of other specified parts of digestive tract
CPT/HCPCS: 71101; 99283

== ENCOUNTER → 2022-02-25 14:35 | Outpatient (BNVA) | payer MEDICARE, SELFPAY | PROVIDERS: PCP Family Medicine; Visit Provider Family Medicine | DX: D50.8 Other iron deficiency anemias (principal); D50.9 Iron deficiency anemia, unspecified; E55.9 Vitamin D deficiency, unspecified; Z13.6 Encounter for screening for cardiovascular disorders; J44.9 Chronic obstructive pulmonary disease, unspecified; F33.1 Major depressive disorder, recurrent, moderate; F41.1 Generalized anxiety disorder; G47.00 Insomnia, unspecified; Z86.39 Personal history of other endocrine, nutritional and metabolic disease | CPT/HCPCS: 80053; 82306; 82728; 83550; 85025 ==